=== PATIENT | male | born 2000 | race Two or more races ===

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

== ENCOUNTER 2023-05-31 19:38 | Emergency (ER) | payer MEDICAID, OTHER ==
[~2023-05-31] VITALS: Ht 170.2 cm; Wt 80.0 kg
[~2023-05-31 19:38] MED LIST: ESCI5TAB PO
[2023-05-31] MEDS ORDERED: BENZ1TAB84 PO (19:59)
[2023-05-31] MEDS ORDERED: HYDR-4584 PO (19:59)
[2023-05-31 20:15] LABS: BASOPHILS % (AUTO) 0.3 % (0.0-2.0); EOSINOPHILS % (AUTO) 2.2 % (1.0-6.0); HEMOGLOBIN 13.8 g/dL (13.5-17.5); LYMPHOCYTES % (AUTO) 25.9 % (22.0-44.0); MEAN CORPUSCULAR HEMOGLOBIN 29.8 pg (26.0-34.0); MEAN CORPUSCULAR HGB CONC 33.6 G/dL (31.0-37.0); MEAN CORPUSCULAR VOLUME 89 fL (80-100); MONOCYTES # (AUTO) 0.8 K/uL (0.1-1.0); MONOCYTES % (AUTO) 10.5 % (2.0-9.0); NEUTROPHILS # (AUTO) 4.7 K/uL (1.8-7.7); NEUTROPHILS % (AUTO) 61.1 % (40.0-70.0); PLATELET COUNT (AUTO) 280 K/uL (150-450); RED BLOOD CELL COUNT(AUTO) 4.63 MIL/uL (4.50-5.90); RED CELL DISTRIBUTION WIDTH 12.7 % (11.5-14.5); WHITE BLOOD COUNT (AUTO) 7.7 K/uL (4.5-11.0)
[2023-05-31 20:23] LABS: ANION GAP 11 mmol/L (8-16); CALCIUM, TOTAL 8.7 mg/dL (8.8-10.5); CARBON DIOXIDE 26 mmol/L (22-29); CHLORIDE 103 mmol/L (98-107); CREATININE 0.99 mg/dL (0.60-1.30); GLOMERULAR FILTR. RATE CALC > 60 mL/min (>60); GLUCOSE,RANDOM 100 mg/dL (70-110); POTASSIUM 3.8 mmol/L (3.5-5.1); SODIUM SERUM 140 mmol/L (136-145); UREA NITROGEN, BLOOD 15 mg/dL (7-18)
[2023-05-31 20:28] LABS: ALANINE AMINOTRANSFERASE 20 U/L (12-78); ALBUMIN 3.5 g/dL (3.4-5.0); ALKALINE PHOSPHATASE 58 U/L (46-116); ASPARTATE AMINOTRANSFERASE 11 U/L (15-37); BILIRUBIN,TOTAL 0.1 mg/dL (0.1-1.0); TOTAL PROTEIN, SERUM 6.8 g/dL (6.4-8.2)
[2023-05-31 22:11] VITALS: BP 109/57; PULSE 56; RESP 17; TEMP 98.8
== END 2023-05-31 22:38 | disposition home or self-care (01) ==
LOC: EMS 19:39
DX: F12.929 Cannabis use, unspecified with intoxication, unspecified (principal); F41.9 Anxiety disorder, unspecified; F32.A Depression, unspecified; F90.9 Attention-deficit hyperactivity disorder, unspecified type; F17.210 Nicotine dependence, cigarettes, uncomplicated
CPT/HCPCS: 80053; 85025; 99283

== ENCOUNTER 2023-07-18 20:46 | Inpatient (IN) | payer MEDICAID, OTHER ==
[~2023-07-18] VITALS: Ht 177.8 cm; Wt 85.5 kg
[~2023-07-18 20:46] MED LIST changes: +BENZ1TAB84 PO; +HYDR-4584 PO
[2023-07-18 21:41] LABS: GLUCOMETER DEV NAME(LOC) POC.BV; POC SARS-COV2 AG, FIA NEGATIVE (NEGATIVE)
[2023-07-18] MEDS ORDERED: INFLUENZA VIRUS VACCINE QVS 2023-24 (6MO+)/PF 60 MCG/0.5 ML SYRINGE IM. ONE (22:15)
[2023-07-19 01:06] VITALS: BP 125/79; PULSE 84; RESP 18; TEMP 97.8; O2SAT 99
[2023-07-19 07:36] LABS: BASOPHILS % (AUTO) 0.6 % (0.0-2.0); EOSINOPHILS % (AUTO) 2.8 % (1.0-6.0); HEMATOCRIT 45.6 % (41-53); HEMOGLOBIN 15.6 g/dL (13.5-17.5); LYMPHOCYTES # (AUTO) 1.7 K/uL (1.0-4.8); LYMPHOCYTES % (AUTO) 24.3 % (22.0-44.0); MEAN CORPUSCULAR HEMOGLOBIN 29.7 pg (26.0-34.0); MEAN CORPUSCULAR HGB CONC 34.3 G/dL (31.0-37.0); MEAN CORPUSCULAR VOLUME 87 fL (80-100); MONOCYTES # (AUTO) 0.7 K/uL (0.1-1.0); MONOCYTES % (AUTO) 10.2 % (2.0-9.0); NEUTROPHILS # (AUTO) 4.4 K/uL (1.8-7.7); NEUTROPHILS % (AUTO) 62.1 % (40.0-70.0); PLATELET COUNT (AUTO) 267 K/uL (150-450); RED BLOOD CELL COUNT(AUTO) 5.26 MIL/uL (4.50-5.90); RED CELL DISTRIBUTION WIDTH 13.2 % (11.5-14.5); WHITE BLOOD COUNT (AUTO) 7.1 K/uL (4.5-11.0)
[2023-07-19 08:11] LABS: HEMOGLOBIN A1C 5.3 % (3.8-5.6)
[2023-07-19 08:16] LABS: ALANINE AMINOTRANSFERASE 27 U/L (12-78); ALBUMIN 3.8 g/dL (3.4-5.0); ALKALINE PHOSPHATASE 65 U/L (46-116); ANION GAP 7 mmol/L (8-16); ASPARTATE AMINOTRANSFERASE 18 U/L (15-37); BILIRUBIN,TOTAL 0.3 mg/dL (0.1-1.0); CALCIUM, TOTAL 9.1 mg/dL (8.8-10.5); CARBON DIOXIDE 28 mmol/L (22-29); CHLORIDE 104 mmol/L (98-107); CHOL/HDL RATIO 3.5 (4.2-7.3); CHOLESTEROL 152 mg/dL (131-200); CREATININE 0.95 mg/dL (0.60-1.30); FREE T4 (FREE THYROXINE) 1.19 ng/dL (0.76-1.46); GLOMERULAR FILTR. RATE CALC > 60 mL/min (>60); GLUCOSE,RANDOM 101 mg/dL (70-110); HDL CHOLESTEROL 44 mg/dL (40-60); LDL CHOL (CALC.) 93 mg/dL (0-130); SODIUM SERUM 139 mmol/L (136-145); THYROID STIMULATING HORMONE 1.59 uIU/mL (0.36-3.74); TOTAL PROTEIN, SERUM 7.6 g/dL (6.4-8.2); TRIGLYCERIDES 76 mg/dL (15-150); UREA NITROGEN, BLOOD 11 mg/dL (7-18)
[2023-07-19 08:34] VITALS: BP 139/70; PULSE 91; RESP 18; TEMP 97.7; O2SAT 98
[2023-07-19] MEDS: LORazepam 2 MG TABLET PO PRN ×2 (09:29→16:36)
[2023-07-19] MEDS: NICOTINE POLACRILEX 2 MG LOZENGE PO PRN ×2 (11:22→17:53)
[2023-07-19] MEDS ORDERED: PRAZ2 PO (12:01)
[2023-07-19] MEDS ORDERED: SERT-439 PO (12:02)
[2023-07-19] MEDS: SERTRALINE HCL 50 MG TABLET PO SCH (12:43)
[2023-07-19] MEDS ORDERED: LOPERAMIDE HCL 2 MG CAPSULE PO PRN (12:45)
[2023-07-19] MEDS ORDERED: NICOTINE 14 MG/24 HOUR PATCH TD PRN (12:45)
[2023-07-19] MEDS ORDERED: MAGNESIUM HYDROXIDE SUSPENSION 30 ML UDCUP PO PRN (12:45)
[2023-07-19] MEDS ORDERED: CloNIDine HCL 0.1 MG TABLET PO PRN (12:45)
[2023-07-19] MEDS ORDERED: DOCUSATE SODIUM 100 MG CAPSULE PO PRN (12:45)
[2023-07-19] MEDS ORDERED: ACETAMINOPHEN 325 MG TABLET PO PRN (12:45)
[2023-07-19] MEDS ORDERED: PETROLATUM,WHITE 28 GM JELLY TP PRN (12:45)
[2023-07-19] MEDS ORDERED: ALBUTEROL SULFATE HFA 90 MCG/PUFF 8 GM INHALER IH PRN (12:45)
[2023-07-19] MEDS ORDERED: IBUPROFEN 400 MG TABLET PO PRN (12:45)
[2023-07-19] MEDS ORDERED: GuaiFENesin/D-METHORPHAN [SUGAR-FREE] 200-20MG/10 ML SYRUP UDCUP PO PRN (12:45)
[2023-07-19] MEDS ORDERED: MAG HYDROX/ALUMINUM HYD/SIMETH ES 30 ML SUSPENSION UDCUP PO PRN (12:45)
[2023-07-19] MEDS ORDERED: ONDANSETRON HCL 4 MG TABLET PO PRN (12:45)
[2023-07-19] MEDS: BENZTROPINE MESYLATE 1 MG TABLET PO SCH (16:36)
[2023-07-19] MEDS: HALOPERIDOL 5 MG TABLET PO PRN (16:36)
[2023-07-19 20:20] VITALS: BP 123/82; PULSE 84; RESP 20; TEMP 97.8; O2SAT 97
[2023-07-19] MEDS: PRAZOSIN HCL 2 MG CAPSULE PO SCH (20:28)
[2023-07-19] MEDS: ZOLPIDEM TARTRATE 10 MG TABLET PO PRN (20:28)
[2023-07-20] MEDS: NICOTINE POLACRILEX 2 MG LOZENGE PO PRN ×2 (06:17→13:31)
[2023-07-20 08:11] LABS: HEMOGLOBIN A1C 5.3 % (3.8-5.6)
[2023-07-20 08:17] LABS: CHOL/HDL RATIO 3.4 (4.2-7.3); THYROID STIMULATING HORMONE 1.23 uIU/mL (0.36-3.74)
[2023-07-20 08:22] VITALS: BP 146/87; PULSE 80; RESP 17; TEMP 97.9; O2SAT 100
[2023-07-20] MEDS ORDERED: PALIPERIDONE PALMITATE 234 MG/1.5 ML SYRINGE IM SCH (09:00)
[2023-07-20] MEDS: SERTRALINE HCL 50 MG TABLET PO SCH (09:01)
[2023-07-20] MEDS: LORazepam 2 MG TABLET PO PRN ×2 (09:01→14:08)
[2023-07-20] MEDS: BENZTROPINE MESYLATE 1 MG TABLET PO SCH ×2 (09:01→16:15)
[2023-07-20] MEDS: PRAZOSIN HCL 2 MG CAPSULE PO SCH (20:03)
[2023-07-20] MEDS: ZOLPIDEM TARTRATE 10 MG TABLET PO PRN (20:04)
[2023-07-20 20:09] VITALS: BP 140/76; PULSE 86; RESP 18; TEMP 97.8; O2SAT 97
[2023-07-21] MEDS: LORazepam 2 MG TABLET PO PRN ×2 (03:54→14:25)
[2023-07-21] MEDS: HALOPERIDOL 5 MG TABLET PO PRN (03:55)
[2023-07-21 09:15] VITALS: BP 111/58; PULSE 87; RESP 18; TEMP 98.1; O2SAT 97
[2023-07-21] MEDS: BENZTROPINE MESYLATE 1 MG TABLET PO SCH ×2 (09:21→16:48)
[2023-07-21] MEDS: SERTRALINE HCL 50 MG TABLET PO SCH (09:22)
[2023-07-21] MEDS: PRAZOSIN HCL 2 MG CAPSULE PO SCH (20:11)
[2023-07-21 23:29] VITALS: BP 118/62; PULSE 82; RESP 17; TEMP 98.2; O2SAT 98
[2023-07-22] MEDS: BENZTROPINE MESYLATE 1 MG TABLET PO SCH ×2 (08:36→16:26)
[2023-07-22] MEDS: SERTRALINE HCL 50 MG TABLET PO SCH (08:36)
[2023-07-22 08:41] VITALS: BP 104/76; PULSE 100; RESP 17; TEMP 98.2; O2SAT 96
[2023-07-22] MEDS: LORazepam 2 MG TABLET PO PRN ×2 (09:53→16:26)
[2023-07-22] MEDS: HALOPERIDOL 5 MG TABLET PO PRN (16:26)
[2023-07-22] MEDS: PRAZOSIN HCL 2 MG CAPSULE PO SCH (20:39)
[2023-07-22 23:00] VITALS: BP 123/67; PULSE 77; RESP 18; TEMP 98.2; O2SAT 98
[2023-07-23] MEDS: HALOPERIDOL 5 MG TABLET PO PRN (08:38)
[2023-07-23] MEDS: LORazepam 2 MG TABLET PO PRN (08:38)
[2023-07-23] MEDS: BENZTROPINE MESYLATE 1 MG TABLET PO SCH (08:38)
[2023-07-23 08:42] VITALS: BP 110/67; PULSE 65; RESP 17; TEMP 97.6; O2SAT 97
[2023-07-23] MEDS ORDERED: ESCITALOPRAM OXALATE 10 MG TABLET PO SCH (09:00)
[2023-07-23] MEDS ORDERED: ESCI-8 PO ×2 (15:00→17:52)
[2023-07-23] MEDS ORDERED: PALI234D IM (17:52)
== END 2023-07-23 12:35 | disposition home or self-care (01) | DRG 750 ==
LOC: B3A 21:06
PROVIDERS: ADMIT Psychiatry & Neurology Psychiatry; ATTEND Psychiatry & Neurology Psychiatry
PROC: GZHZZZZ Group Psychotherapy (ICD-10-PCS; principal; 2023-07-19)
DX: F25.1 Schizoaffective disorder, depressive type (principal); R45.851 Suicidal ideations; F43.12 Post-traumatic stress disorder, chronic; F41.9 Anxiety disorder, unspecified; Z20.822 Contact with and (suspected) exposure to COVID-19; F10.90 Alcohol use, unspecified, uncomplicated; G47.00 Insomnia, unspecified; Z91.51 Personal history of suicidal behavior; Z79.899 Other long term (current) drug therapy
CPT/HCPCS: 80053; 80061; 83036; 84439; 84443; 85025; Q9967

== ENCOUNTER 2023-11-05 15:59 | Inpatient (IN) | payer MEDICAID, OTHER ==
[~2023-11-05] VITALS: Ht 177.8 cm; Wt 83.7 kg
[~2023-11-05 15:59] MED LIST changes: +ESCI-8 PO; -ESCI5TAB PO; -HYDR-4584 PO; +PALI234D IM; +PRAZ2 PO
[2023-11-05] MEDS ORDERED: GABA600T10 PO (17:07)
[2023-11-05] MEDS ORDERED: TRAZ-283 PO (17:07)
[2023-11-05] MEDS ORDERED: HYDR-4584 PO (17:07)
[2023-11-05 17:22] LABS: BASOPHILS % (AUTO) 0.2 % (0.0-2.0); EOSINOPHILS % (AUTO) 0 % (1.0-6.0); HEMATOCRIT 45.2 % (41-53); HEMOGLOBIN 15.3 g/dL (13.5-17.5); LYMPHOCYTES # (AUTO) 1.6 K/uL (1.0-4.8); LYMPHOCYTES % (AUTO) 9.2 % (22.0-44.0); MEAN CORPUSCULAR HEMOGLOBIN 28.7 pg (26.0-34.0); MEAN CORPUSCULAR HGB CONC 33.8 G/dL (31.0-37.0); MEAN CORPUSCULAR VOLUME 85 fL (80-100); MONOCYTES # (AUTO) 1.8 K/uL (0.1-1.0); MONOCYTES % (AUTO) 10.2 % (2.0-9.0); NEUTROPHILS # (AUTO) 14.2 K/uL (1.8-7.7); NEUTROPHILS % (AUTO) 80.4 % (40.0-70.0); PLATELET COUNT (AUTO) 337 K/uL (150-450); RED BLOOD CELL COUNT(AUTO) 5.31 MIL/uL (4.50-5.90); RED CELL DISTRIBUTION WIDTH 14.3 % (11.5-14.5); WHITE BLOOD COUNT (AUTO) 17.7 K/uL (4.5-11.0)
[2023-11-05] MEDS: BENZTROPINE MESYLATE 2 MG TABLET PO ONE (17:28)
[2023-11-05] MEDS: LORazepam 2 MG TABLET PO ONE (17:28)
[2023-11-05] MEDS: HALOPERIDOL 5 MG TABLET PO ONE (17:28)
[2023-11-05 17:32] LABS: ANION GAP 16 mmol/L (8-16); CALCIUM, TOTAL 9.7 mg/dL (8.8-10.5); CARBON DIOXIDE 20 mmol/L (22-29); CHLORIDE 104 mmol/L (98-107); CREATININE 1.29 mg/dL (0.60-1.30); GLOMERULAR FILTR. RATE CALC > 60 mL/min (>60); GLUCOSE,RANDOM 122 mg/dL (70-110); POTASSIUM 3.7 mmol/L (3.5-5.1); SODIUM SERUM 140 mmol/L (136-145); UREA NITROGEN, BLOOD 11 mg/dL (7-18)
[2023-11-05 17:33] LABS: ALCOHOL, BLOOD (SERUM) < 3 mg/dL (0-10)
[2023-11-05 17:43] LABS: COVID AG,FIA SOURCE NASAL SWAB
[2023-11-05 17:48] LABS: ALANINE AMINOTRANSFERASE 36 U/L (12-78); ALKALINE PHOSPHATASE 99 U/L (46-116); ASPARTATE AMINOTRANSFERASE 107 U/L (15-37); CREATINE KINASE, TOTAL ONLY 5555 U/L (39-308); TOTAL PROTEIN, SERUM 8.5 g/dL (6.4-8.2)
[2023-11-05 18:02] LABS: SARS-COV2 (COVID) ANTIGEN,FIA Negative (Negative)
[2023-11-05] MEDS: SODIUM CHLORIDE 0.9% 2,000 ML IV ONE (18:54)
[2023-11-05] MEDS: LORazepam 2 MG/ML VIAL IVP ONE (18:54)
[2023-11-05] MEDS ORDERED: BISACODYL 10 MG RECTAL RECTAL SUPPOSITORY PR PRN (21:00)
[2023-11-05] MEDS ORDERED: MAGNESIUM HYDROXIDE SUSPENSION 30 ML UDCUP PO PRN (21:00)
[2023-11-05] MEDS ORDERED: ACETAMINOPHEN 325 MG TABLET PO PRN (21:00)
[2023-11-05] MEDS ORDERED: MORPHINE SULFATE 2 MG/ML SYRINGE IVP PRN (21:00)
[2023-11-05] MEDS ORDERED: HYDROCODONE/ACETAMINOPHEN 5-325 MG TABLET PO PRN (21:00)
[2023-11-05] MEDS ORDERED: ZOLPIDEM TARTRATE 5 MG TABLET PO PRN (21:00)
[2023-11-05] MEDS: DOCUSATE SODIUM 100 MG CAPSULE PO SCH (21:39)
[2023-11-05] MEDS: SODIUM CHLORIDE 0.9% 2,000 ML IV SCH (21:39)
[2023-11-05 22:36] VITALS: BP 108/58; PULSE 78; RESP 19; TEMP 98
[2023-11-06] MEDS: HEPARIN SODIUM,PORCINE 5,000 UNITS/ML VIAL SQ SCH
[2023-11-06 00:27] VITALS: BP 111/68; PULSE 74; RESP 18; TEMP 98.2
[2023-11-06 05:43] LABS: ALCOHOL, URINE DRUG SCREEN NEGATIVE (NEGATIVE); AMPHET/METH SCREEN,URINE POSITIVE (NEGATIVE); APPEARANCE,URINE CLEAR (CLEAR); BARBITURATE SCREEN, URINE NEGATIVE (NEGATIVE); BENZODIAZEPINES SCREEN,URINE NEGATIVE (NEGATIVE); BILIRUBIN,URINE NEGATIVE (NEGATIVE); CANNABINOID SCREEN,URINE NEGATIVE (NEGATIVE); COCAINE SCREEN,URINE NEGATIVE (NEGATIVE); COLOR,URINE YELLOW (YELLOW); GLUCOSE, URINE (UA) NEGATIVE (NEGATIVE); KETONES,URINE NEGATIVE (NEGATIVE); LEUKOCYTE ESTERASE ,URINE NEGATIVE (NEGATIVE); METHADONE SCREEN, URINE NEGATIVE (NEGATIVE); NITRATE,URINE NEGATIVE (NEGATIVE); OCCULT BLOOD,URINE NEGATIVE (NEGATIVE); OPIATE SCREEN,URINE NEGATIVE (NEGATIVE); PHENCYCLIDINE SCREEN,URINE NEGATIVE (NEGATIVE); PROTEIN,URINE TRACE mg/dL (NEGATIVE); SPECIFIC GRAVITIY, URINE 1.021 (1.003-1.030); UROBILINOGEN,URINE <=1.0 mg/dL (<=1.0)
[2023-11-06 05:53] LABS: BACTERIA,URINE None Seen /HPF (None Seen); RBC,URINE None Seen /HPF (0-2); SQUAMOUS EPITHELIAL CELL,UR Few /LPF (None Seen); WBC,URINE 0-2 /HPF (0-5)
[2023-11-06 05:55] VITALS: BP 138/109; PULSE 81; RESP 19; TEMP 98.4
[2023-11-06 06:37] LABS: BASOPHILS % (AUTO) 0.4 % (0.0-2.0); EOSINOPHILS % (AUTO) 0.5 % (1.0-6.0); HEMATOCRIT 43.7 % (41-53); HEMOGLOBIN 14.4 g/dL (13.5-17.5); LYMPHOCYTES # (AUTO) 1.9 K/uL (1.0-4.8); LYMPHOCYTES % (AUTO) 15.6 % (22.0-44.0); MEAN CORPUSCULAR HEMOGLOBIN 28.4 pg (26.0-34.0); MEAN CORPUSCULAR VOLUME 86 fL (80-100); MONOCYTES % (AUTO) 7.9 % (2.0-9.0); NEUTROPHILS # (AUTO) 9.4 K/uL (1.8-7.7); NEUTROPHILS % (AUTO) 75.6 % (40.0-70.0); PLATELET COUNT (AUTO) 292 K/uL (150-450); RED BLOOD CELL COUNT(AUTO) 5.08 MIL/uL (4.50-5.90); RED CELL DISTRIBUTION WIDTH 13.8 % (11.5-14.5); WHITE BLOOD COUNT (AUTO) 12.5 K/uL (4.5-11.0)
[2023-11-06] MEDS: ONDANSETRON HCL 4 MG/2 ML VIAL IVP PRN (07:11)
[2023-11-06 07:50] LABS: ANION GAP 9 mmol/L (8-16); CALCIUM, TOTAL 8.7 mg/dL (8.8-10.5); CARBON DIOXIDE 25 mmol/L (22-29); CHLORIDE 104 mmol/L (98-107); CREATININE 0.83 mg/dL (0.60-1.30); GLOMERULAR FILTR. RATE CALC > 60 mL/min (>60); GLUCOSE,RANDOM 95 mg/dL (70-110); POTASSIUM 3.6 mmol/L (3.5-5.1); SODIUM SERUM 138 mmol/L (136-145); UREA NITROGEN, BLOOD 10 mg/dL (7-18)
[2023-11-06 07:52] LABS: CREATINE KINASE, TOTAL ONLY 4008 U/L (39-308)
[2023-11-06 08:14] VITALS: BP 124/66; PULSE 62; RESP 19; TEMP 98.2
[2023-11-06] MEDS: BENZTROPINE MESYLATE 1 MG TABLET PO SCH (08:45)
[2023-11-06] MEDS: ESCITALOPRAM OXALATE 10 MG TABLET PO SCH (08:46)
[2023-11-06] MEDS: PANTOPRAZOLE SODIUM 40 MG DR TABLET PO SCH (08:46)
[2023-11-06 11:16] VITALS: BP 111/62; PULSE 86; RESP 18; TEMP 98
[2023-11-06 15:09] VITALS: BP 130/69; PULSE 70; RESP 18; TEMP 98
[2023-11-06] MEDS ORDERED: PRAZOSIN HCL 2 MG CAPSULE PO SCH (21:00)
[2023-11-11] MEDS ORDERED: HYDR-4584 PO (17:20)
[2023-11-11] MEDS ORDERED: TRAZ-283 PO (17:20)
[2023-11-11] MEDS ORDERED: BENZ1TAB84 PO (17:20)
[2023-11-11] MEDS ORDERED: GABA-1181 PO (17:20)
== END 2023-11-06 18:50 | disposition left against medical advice (07) | DRG 816 ==
LOC: EMS 15:59 → 5S 21:11
PROVIDERS: ADMIT Internal Medicine; ATTEND Internal Medicine
DX: T65.91XA Toxic effect of unspecified substance, accidental (unintentional), initial encounter (principal); G92.8 Other toxic encephalopathy; M62.82 Rhabdomyolysis; R65.10 Systemic inflammatory response syndrome (SIRS) of non-infectious origin without acute organ dysfunction; F20.0 Paranoid schizophrenia; E86.0 Dehydration; Z59.00 Homelessness unspecified; Z20.822 Contact with and (suspected) exposure to COVID-19; F15.10 Other stimulant abuse, uncomplicated; Z53.29 Procedure and treatment not carried out because of patient's decision for other reasons; F84.5 Asperger's syndrome; F43.10 Post-traumatic stress disorder, unspecified; F10.10 Alcohol abuse, uncomplicated; Z87.891 Personal history of nicotine dependence
CPT/HCPCS: 80048; 80053; 80307; 81001; 82550; 85025; 99285; G0378; G0480; J1644; J2060; J2405; J7030

== ENCOUNTER 2025-02-15 05:20 | Emergency (ER) | payer MEDICAID, OTHER ==
[~2025-02-15] VITALS: Ht 177.8 cm; Wt 92.3 kg
[~2025-02-15 05:20] MED LIST changes: +BENZ-247 PO; -BENZ1TAB84 PO; +GABA-1181 PO; +HYDR-4584 PO; -PALI234D IM; -PRAZ2 PO; +TRAZ-283 PO
[2025-02-15 05:28] VITALS: BP 139/108; PULSE 72; RESP 15; TEMP 97.9; O2SAT 98
[2025-02-15] MEDS ORDERED: CLIN-142 PO (06:17)
[2025-02-15] MEDS ORDERED: TRAM50TA5 PO (06:17)
[2025-02-15] MEDS: KETOROLAC TROMETHAMINE 30 MG/ML VIAL IM ONE (06:20)
[2025-02-15] MEDS: CLINDAMYCIN PHOS 150 MG/ML 4 ML VIAL IM ONE (06:20)
[2025-02-15] MEDS: TraMADol HCL 50 MG TABLET PO ONE (06:20)
== END 2025-02-15 06:45 | disposition home or self-care (01) ==
LOC: EMS 05:40
DX: K02.9 Dental caries, unspecified (principal); K08.89 Other specified disorders of teeth and supporting structures; I10 Essential (primary) hypertension; F12.90 Cannabis use, unspecified, uncomplicated; F17.210 Nicotine dependence, cigarettes, uncomplicated; F11.90 Opioid use, unspecified, uncomplicated; F10.90 Alcohol use, unspecified, uncomplicated; Z79.899 Other long term (current) drug therapy; Y90.9 Presence of alcohol in blood, level not specified
CPT/HCPCS: 99284; 96372; J1885; J3490